=== PATIENT | female | born 1955 | race Caucasian/White ===

== ENCOUNTER 2020-10-28 19:15 | Inpatient (IN) ==
[2020-10-28] MEDS ORDERED: fentaNYL 100 MCG/2 ML VIAL ONE (19:16)
[2020-10-28] MEDS ORDERED: MIDAZOLAM 2 MG/2 ML VIAL ONE ×2 (19:16→19:28)
[2020-10-28] MEDS ORDERED: ENOXAPARIN 60 MG/0.6 ML SYRINGE ONE (19:32)
[2020-10-28] MEDS ORDERED: TIROFIBAN 5,000 MCG/100 ML PREMIX IV ONE (19:33)
[2020-10-28] MEDS ORDERED: TIROFIBAN 5,000 MCG/100 ML PREMIX IV SCH (19:39)
[2020-10-28] MEDS ORDERED: TICAGRELOR 90 MG TABLET ONE (20:22)
[2020-10-28] MEDS ORDERED: ONDANSETRON 4 MG/2 ML VIAL IV PRN (20:26)
[2020-10-28] MEDS ORDERED: ACETAMINOPHEN 325 MG TABLET PO PRN (20:26)
[2020-10-28] MEDS ORDERED: NITROGLYCERIN SL 0.4 MG TABLET SL PRN (20:26)
[2020-10-28] MEDS ORDERED: SODIUM CHLORIDE 0.9% 1,000 ML IV SCH (20:30)
[2020-10-28] MEDS: ROSUVASTATIN 20 MG TABLET PO SCH (22:00)
[2020-10-28] MEDS: TICAGRELOR 90 MG TABLET PO SCH (22:01)
[2020-10-28] MEDS: carvediloL 3.125 MG TABLET PO SCH (22:01)
[2020-10-28 22:38] LABS: Basophils % 0.2 % (0.0-0.8); Eosinophils % 0.1 % (0.00-10.9); Hematocrit 40.7 VOL% (35.7-47.0); Hemoglobin 13.4 GM/DL (12.0-16.0); Immature Granulocytes % 0.4 %; Immature Granulocytes Absolute 0.05 #; Lymphocytes # 1.8 10*3/uL (1.4-4.0); Lymphocytes % 15.5 % (21.3-54.2); Mean Corpuscular HGB Conc 32.9 GM/DL (32-36); Mean Corpuscular Volume 92.5 FL (87-102); Mean Platelet Volume 9.6 FL (9.6-12.0); Monocytes % 3.4 % (1.7-12.7); Neutrophils % 80.4 % (38.7-73.9); Platelet Count 258 T/CUMM (130-400); Red Cell Distribution Width 12.8 % (9.3-17.3); White Blood Count 11.6 T/CUMM (4-12)
[2020-10-28 23:06] LABS: CKMB % 9.4 %
[2020-10-28 23:12] LABS: Troponin I 5.15 NG/ML (0.00-0.045)
[2020-10-29 00:31] LABS: Calcium 8.5 MG/DL (8.5-10.1); Osmolality,Calculated 277.5 MOS/KG (273-304); Potassium 4.6 MMOL/L (3.5-5.1)
[2020-10-29] MEDS: ZALEPLON 5 MG CAPSULE PO PRN ×2 (01:11→20:00)
[2020-10-29 05:53] LABS: Risk Ratio 4.41; VLDL CHOLESTEROL 31.2 MG/DL
[2020-10-29 06:08] LABS: Troponin I 18.4 NG/ML (0.00-0.045)
[2020-10-29] MEDS ORDERED: ASPIRIN EC 81 MG TABLET PO SCH ×2 (09:00→19:00)
[2020-10-29] MEDS: carvediloL 3.125 MG TABLET PO SCH (09:06)
[2020-10-29] MEDS: TICAGRELOR 90 MG TABLET PO SCH ×2 (09:06→20:00)
[2020-10-29] MEDS: SERTRALINE 100 MG TABLET PO SCH (09:55)
[2020-10-29] MEDS: GABAPENTIN 300 MG CAPSULE PO SCH ×3 (09:55→20:00)
[2020-10-29] MEDS ORDERED: GABAPENTIN 300 MG CAPSULE PO SCH (15:00)
[2020-10-29] MEDS: carvediloL 6.25 MG TABLET PO SCH (16:04)
[2020-10-29] MEDS: ROSUVASTATIN 20 MG TABLET PO SCH (20:00)
[2020-10-29] MEDS: ASPIRIN EC 81 MG TABLET PO SCH (20:01)
[2020-10-30 05:40] LABS: Basophils % 0.4 % (0.0-0.8); Eosinophils # 0.1 10*3/uL (0.0-0.87); Eosinophils % 1.1 % (0.00-10.9); Hematocrit 39.9 VOL% (35.7-47.0); Immature Granulocytes % 0.5 %; Immature Granulocytes Absolute 0.04 #; Lymphocytes # 2.1 10*3/uL (1.4-4.0); Lymphocytes % 25.3 % (21.3-54.2); Mean Corpuscular HGB Conc 32.6 GM/DL (32-36); Mean Corpuscular Volume 94.5 FL (87-102); Monocytes % 7.2 % (1.7-12.7); Neutrophils % 65.5 % (38.7-73.9); Platelet Count 232 T/CUMM (130-400); Red Blood Count 4.22 MC/CUMM (3.8-5.5); Red Cell Distribution Width 12.9 % (9.3-17.3); White Blood Count 8.3 T/CUMM (4-12)
[2020-10-30 05:52] LABS: Calcium 8.6 MG/DL (8.5-10.1); Osmolality,Calculated 279.4 MOS/KG (273-304); Potassium 4.2 MMOL/L (3.5-5.1)
[2020-10-30 05:57] LABS: CKMB % 4.5 %
[2020-10-30] MEDS ORDERED: SERTRALINE 100 MG TABLET PO SCH (09:00)
[2020-10-30] MEDS: SERTRALINE 100 MG TABLET PO SCH (09:47)
[2020-10-30] MEDS: GABAPENTIN 300 MG CAPSULE PO SCH ×3 (09:47→21:22)
[2020-10-30] MEDS: TICAGRELOR 90 MG TABLET PO SCH ×2 (09:49→21:22)
[2020-10-30] MEDS: carvediloL 6.25 MG TABLET PO SCH ×2 (10:00→17:06)
[2020-10-30 12:35] VITALS: BP 117/70
[2020-10-30] MEDS: ROSUVASTATIN 20 MG TABLET PO SCH (21:22)
[2020-10-30] MEDS: ASPIRIN EC 81 MG TABLET PO SCH (21:22)
[2020-10-30] MEDS: ZALEPLON 5 MG CAPSULE PO PRN (21:24)
[2020-10-31 05:42] LABS: Basophils % 0.3 % (0.0-0.8); Eosinophils # 0.1 10*3/uL (0.0-0.87); Hemoglobin 12.8 GM/DL (12.0-16.0); Immature Granulocytes % 0.3 %; Immature Granulocytes Absolute 0.02 #; Lymphocytes # 2.4 10*3/uL (1.4-4.0); Lymphocytes % 33.7 % (21.3-54.2); Mean Corpuscular Volume 94.1 FL (87-102); Mean Platelet Volume 10.1 FL (9.6-12.0); Monocytes % 8.5 % (1.7-12.7); Neutrophils % 55.2 % (38.7-73.9); Platelet Count 222 T/CUMM (130-400); Red Blood Count 4.25 MC/CUMM (3.8-5.5); Red Cell Distribution Width 12.8 % (9.3-17.3)
[2020-10-31 05:57] LABS: Calcium 8.9 MG/DL (8.5-10.1); Osmolality,Calculated 278.4 MOS/KG (273-304)
[2020-10-31] MEDS ORDERED: LEVOTHYROXINE 50 MCG TABLET PO SCH (09:00)
[2020-10-31] MEDS: SERTRALINE 100 MG TABLET PO SCH (09:25)
[2020-10-31] MEDS: GABAPENTIN 300 MG CAPSULE PO SCH (09:25)
[2020-10-31] MEDS: carvediloL 6.25 MG TABLET PO SCH (09:29)
[2020-10-31] MEDS: TICAGRELOR 90 MG TABLET PO SCH (09:31)
== END 2020-10-31 12:44 | disposition home or self-care (01) | DRG 247 ==
LOC: N.CL 19:15 → N.SDSINP 19:54 → N.ICU 20:49
PROVIDERS: ADMIT Internal Medicine Cardiovascular Disease; ATTEND Internal Medicine Cardiovascular Disease
PROC: CLCCHCL (ICD-10-PCS; 2020-10-28 19:30)

== ENCOUNTER 2020-12-10 14:33 | Observation (INO) ==
[2020-12-10 15:25] LABS: Basophils % 0.6 % (0.0-0.8); Eosinophils # 0.1 10*3/uL (0.0-0.87); Eosinophils % 2.4 % (0.00-10.9); Hematocrit 45.9 VOL% (35.7-47.0); Hemoglobin 15.1 GM/DL (12.0-16.0); Immature Granulocytes % 0.2 %; Immature Granulocytes Absolute 0.01 #; Lymphocytes # 1.9 10*3/uL (1.4-4.0); Lymphocytes % 35.5 % (21.3-54.2); Mean Corpuscular HGB Conc 32.9 GM/DL (32-36); Mean Corpuscular Volume 91.4 FL (87-102); Mean Platelet Volume 10.3 FL (9.6-12.0); Monocytes % 5.4 % (1.7-12.7); Neutrophils % 55.9 % (38.7-73.9); Platelet Count 268 T/CUMM (130-400); Red Blood Count 5.02 MC/CUMM (3.8-5.5); Red Cell Distribution Width 12.9 % (9.3-17.3); White Blood Count 5.4 T/CUMM (4-12)
[2020-12-10 15:36] LABS: PT Patient Result 11.4 SECS (10.5-12.0)
[2020-12-10 15:38] LABS: Albumin 4.3 G/DL (3.4-5.0); Bilirubin,Total 0.6 MG/DL (0.2-1.0); Calcium 9.4 MG/DL (8.5-10.1); Osmolality,Calculated 284.1 MOS/KG (273-304); Potassium 3.8 MMOL/L (3.5-5.1); Total Protein 8.6 G/DL (6.4-8.2)
[2020-12-10] MEDS ORDERED: ONDANSETRON 4 MG/2 ML VIAL IV PRN (16:50)
[2020-12-10] MEDS ORDERED: ACETAMINOPHEN 325 MG TABLET PO PRN (16:50)
[2020-12-10] MEDS ORDERED: GLUCAGON 1 MG VIAL IM PRN (16:50)
[2020-12-10] MEDS ORDERED: DEXTROSE 50% 25 GM/50 ML VIAL IV PRN (16:50)
[2020-12-10] MEDS ORDERED: NITROGLYCERIN SL 0.4 MG TABLET SL PRN (16:58)
[2020-12-10] MEDS: INSULIN LISPRO 100 UNIT/ML SUBCUT SCH (20:38)
[2020-12-10] MEDS: TICAGRELOR 90 MG TABLET PO SCH (21:19)
[2020-12-10] MEDS: ROSUVASTATIN 20 MG TABLET PO SCH (21:19)
[2020-12-10] MEDS: ASPIRIN EC 81 MG TABLET PO SCH (21:19)
[2020-12-10] MEDS: GABAPENTIN 300 MG CAPSULE PO SCH (21:20)
[2020-12-10] MEDS: ENOXAPARIN 40 MG/0.4 ML SYRINGE SUBCUT SCH (21:20)
[2020-12-10] MEDS: carvediloL 6.25 MG TABLET PO SCH (21:20)
[2020-12-11 05:22] LABS: Calcium 8.6 MG/DL (8.5-10.1); Osmolality,Calculated 278.5 MOS/KG (273-304); Potassium 3.6 MMOL/L (3.5-5.1); Thyroid Stimulating Hormone 1.04 uIU/ml (0.358-3.74)
[2020-12-11] MEDS: LEVOTHYROXINE 50 MCG TABLET PO SCH (06:09)
[2020-12-11] MEDS ORDERED: POTASSIUM CHLORIDE 20 MEQ TABLET PO ONE (07:47)
[2020-12-11] MEDS: INSULIN LISPRO 100 UNIT/ML SUBCUT SCH ×4 (09:02→20:50)
[2020-12-11] MEDS: carvediloL 6.25 MG TABLET PO SCH (09:05)
[2020-12-11] MEDS: TICAGRELOR 90 MG TABLET PO SCH ×2 (09:05→20:50)
[2020-12-11] MEDS: SERTRALINE 100 MG TABLET PO SCH (09:05)
[2020-12-11] MEDS: GABAPENTIN 300 MG CAPSULE PO SCH ×2 (09:05→21:58)
[2020-12-11] MEDS: ESTRADIOL 1 MG TABLET PO SCH (09:05)
[2020-12-11] MEDS: PANTOPRAZOLE 40 MG TABLET PO SCH (09:05)
[2020-12-11] MEDS: ASCORBIC ACID 500 MG TABLET PO SCH ×2 (12:17→21:58)
[2020-12-11 14:42] LABS: Bacteria,Urine Occasional /HPF (Few); Bilirubin,Urine Negative (Negative); Blood, Urine Negative (Negative); Glucose,Urine (UA) Negative (Negative); Ketones,Urine Negative (Negative); Mucus,Urine Occasional /LPF (Occasional); Nitrite,Urine Negative (Negative); Protein,Urine Negative; Squamous Epithelial Cell,Urine Occasional /HPF (0-10); Urine Appearance Slightly Hazy (Clear); Urine Color Straw (Yellow); Urine Specific Gravity 1.005 (1.001-1.035); Urine Urobilinogen < 2.0 EU/DL (0.2-1.0)
[2020-12-11] MEDS: ASPIRIN EC 81 MG TABLET PO SCH (18:43)
[2020-12-11] MEDS: ROSUVASTATIN 20 MG TABLET PO SCH (20:51)
[2020-12-11] MEDS: METOPROLOL TARTRATE 50 MG TABLET PO SCH (20:55)
[2020-12-11] MEDS: ENOXAPARIN 40 MG/0.4 ML SYRINGE SUBCUT SCH (20:56)
[2020-12-12] MEDS: LEVOTHYROXINE 50 MCG TABLET PO SCH (06:12)
[2020-12-12 07:09] LABS: Calcium 8.9 MG/DL (8.5-10.1); Osmolality,Calculated 281.3 MOS/KG (273-304); Potassium 3.8 MMOL/L (3.5-5.1)
[2020-12-12] MEDS: INSULIN LISPRO 100 UNIT/ML SUBCUT SCH (08:44)
[2020-12-12] MEDS: SERTRALINE 100 MG TABLET PO SCH (08:47)
[2020-12-12] MEDS: ESTRADIOL 1 MG TABLET PO SCH (08:47)
[2020-12-12] MEDS: METOPROLOL TARTRATE 50 MG TABLET PO SCH (08:48)
[2020-12-12] MEDS: TICAGRELOR 90 MG TABLET PO SCH (08:48)
[2020-12-12] MEDS: PANTOPRAZOLE 40 MG TABLET PO SCH (08:48)
[2020-12-12] MEDS: GABAPENTIN 300 MG CAPSULE PO SCH (08:48)
[2020-12-12] MEDS: ASCORBIC ACID 500 MG TABLET PO SCH (08:48)
[2020-12-12 08:51] VITALS: BP 112/69
== END 2020-12-12 12:08 | disposition home or self-care (01) ==
LOC: EDUNIT# → EDBD → N.ED 14:33 → N.EDINP 14:33 → N.TELEN 18:15
PROVIDERS: ADMIT Internal Medicine; ATTEND Internal Medicine